=== PATIENT | female | born 1995 | race African-American/Black ===

== ENCOUNTER → 2017-09-15 | Outpatient (REF) ==
[2017-09-17 14:17] LABS: QUANTIFERON GOLD TB Negative (Negative); TB Test (QFT) Antigen 0.07 IU/mL (.); TB Test (QFT) Mitogen >10.00 IU/mL (.); TB Test (QFT) Nil 0.07 IU/mL (.)
== END ==
LOC: M LAB 14:58
DX: Z00.00 Encounter for general adult medical examination without abnormal findings (principal)

== ENCOUNTER 2020-09-30 22:20 | Emergency (ER) | payer OTHER ==
[~2020-09-30] VITALS: Ht 160 cm; Wt 84.0 kg
[2020-09-30] MEDS ORDERED: NS 1,000 ML IV ONE (23:45)
[2020-10-01 00:31] LABS: BASO # 0.1 10^3/uL (0.0-0.2); EOS # 0.2 10^3/uL (0.0-0.5); EOS % 1.6 % (0.0-3.0); HEMOGLOBIN 11.3 g/dl (12.0-15.5); LYMPH # 4.6 10^3/uL (1.5-5.0); LYMPH % 45.6 % (24.0-44.0); MEAN CORPUSCULAR HEMOGLOBIN 30.1 pg (27.0-33.0); MEAN CORPUSCULAR HGB CONC 33.2 g/dl (32.0-36.5); MEAN CORPUSCULAR VOLUME 90.7 fl (80.0-96.0); MONO # 0.8 10^3/uL (0.0-0.8); MONO % 8.3 % (0.0-5.0); NEUTROPHILS # 4.3 10^3/uL (1.5-8.5); NEUTROPHILS % 43.3 % (36.0-66.0); PLATELET COUNT, AUTOMATED 304 10^3/uL (150-450); RED BLOOD COUNT 3.75 10^6/uL (4.00-5.40)
[2020-10-01] MEDS ORDERED: KETOROLAC 30 MG/ML 1ML VIAL IV ONE (00:45)
[2020-10-01 01:04] LABS: ALBUMIN 3.9 GM/DL (3.2-5.2); ALT/SGPT 22 U/L (12-78); BILIRUBIN,DIRECT < 0.1 MG/DL (0.0-0.2); BILIRUBIN,TOTAL 0.2 MG/DL (0.2-1.0); LIPASE 91 U/L (73-393); TOTAL PROTEIN 7.4 GM/DL (6.4-8.2)
[2020-10-01] MEDS ORDERED: ISOVUE-370 76% 100ML VIAL As Ordered ONE (01:04)
--- NOTE | 2020-10-01 02:15 | REPVR ---
PROCEDURE INFORMATION: Exam: CT Abdomen And Pelvis With Contrast Exam date and time: 10/01/2020 12:33 AM Age: 25 years old Clinical indication: Abdominal pain; Patient HX: Sudden onset pain periumbilical; Additional info: Periumbilical pain into rlq sudden onset TECHNIQUE: Imaging protocol: Computed tomography of the abdomen and pelvis with intravenous contrast. Radiation optimization: All CT scans at this facility use at least one of these dose optimization techniques: automated exposure control; mA and/or kV adjustment per patient size (includes targeted exams where dose is matched to clinical indication); or iterative reconstruction. Contrast material: ISO; Contrast volume: 100 ml; Contrast route: INTRAVENOUS (IV); COMPARISON: No relevant prior studies available. FINDINGS: Liver: Normal. No mass. Gallbladder and bile ducts: Normal. No calcified stones. No ductal dilation. Pancreas: Normal. No ductal dilation. Spleen: Normal. No splenomegaly. Adrenal glands: Normal. No mass. Kidneys and ureters: Normal. No hydronephrosis. Stomach and bowel: Copious stool in the colon. No abnormal bowel dilatation. No abnormal bowel wall thickening. Negative for colonic diverticulitis. Appendix: Appendix is normal. Intraperitoneal space: Unremarkable. No free air. No significant fluid collection. Vasculature: Unremarkable. No abdominal aortic aneurysm. Lymph nodes: Unremarkable. No enlarged lymph nodes. Urinary bladder: Unremarkable as visualized. Reproductive: Uterus is normal. Crenulated isodense lesion in the left ovary measuring 1.3 x 2.0 cm. Bones/joints: Unremarkable. No acute fracture. Soft tissues: Unremarkable. IMPRESSION: 1. Copious stool in the colon. 2. No evidence of bowel obstruction. 3. Ovoid isodense lesion in the left ovary consistent with corpus luteum. No follow-up is necessary. Electronically signed by: Perla Segundo On 10/01/2020 02:15:22 AM
--- NOTE | 2020-10-01 02:28 | REPVR ---
PROCEDURE INFORMATION: Exam: US Nonobstetric Pelvis; Complete Exam date and time: 10/01/2020 2:17 AM Age: 25 years old Clinical indication: Pelvic pain; Additional info: Right pelvic pain, concern for torsion TECHNIQUE: Imaging protocol: Transabdominal pelvic nonobstetric ultrasound. Complete exam. Real time ultrasound with image documentation. COMPARISON: CT ABD/PEL W/IV CONTRAST ONLY 10/01/2020 1:18 AM FINDINGS: Uterus/cervix: Uterus measures 8.6 x 4.6 x 5.3 cm. Endometrial stripe measures 18.3 mm in thickness. No uterine masses. Right adnexa: Right ovary measures 4.3 x 1.7 x 2.0 cm. No masses. Normal vascular flow. Left adnexa: Left ovary measures 3.5 x 2.3 x 2.0 cm. Subtle hyperechoic lesion in the left ovary measuring 1.8 x 1.5 cm. Intraperitoneal space: No intraperitoneal fluid. Urinary bladder: Normal. IMPRESSION: 1. Thickened endometrial stripe. Possible hyperplasia versus polyps versus neoplasm. 2. Subtle hyperechoic lesion in the left ovary. Consistent with corpus luteum or hemorrhagic cyst. Findings correlate with CT findings. Electronically signed by: Perla Segundo On 10/01/2020 02:27:53 AM
[2020-10-01 03:00] VITALS: BP 125/58
--- NOTE | 2020-10-02 08:40 | ED PDOC ---
Post-Departure Follow-Up radiology repor tfaxed to [facility] Ca Engle MD Oct 02, 2020 08:40
== END 2020-10-01 03:09 | disposition home or self-care (01) ==
LOC: M ED 22:20
DX: K59.00 Constipation, unspecified (principal); N83.292 Other ovarian cyst, left side; R93.89 Abnormal findings on diagnostic imaging of other specified body structures
CPT/HCPCS: 74177; 76856; 80047; 80076; 81001; 83605; 83690; 84702; 85025; 96361; 96374; 99284; J1885; Q9967

== ENCOUNTER 2022-02-12 06:55 | Emergency (ER) | payer OTHER ==
[~2022-02-12] VITALS: Ht 160 cm; Wt 91.4 kg
[2022-02-12 06:57] VITALS: BP 125/59
[2022-02-12] MEDS ORDERED: BIOF4GEL4 TOP (08:55)
== END 2022-02-12 09:13 | disposition home or self-care (01) ==
LOC: M ED 06:55
DX: S89.91XA Unspecified injury of right lower leg, initial encounter (principal); X50.1XXA Overexertion from prolonged static or awkward postures, initial encounter; Y92.410 Unspecified street and highway as the place of occurrence of the external cause; Y93.02 Activity, running